=== PATIENT | male | born 2000 | race Caucasian/White ===

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

== ENCOUNTER 2021-05-22 04:22 | Outpatient (CLI) | payer BC, SELFPAY ==
[2021-05-22 13:42] LABS: Hemoglobin A1C 5.1 % (<5.7)
[2021-05-23 11:52] LABS: HIV-1/2 Ag & Ab Screen Negative (Negative)
[2021-05-23 11:58] LABS: Syphilis Serology (RPR) Negative (Negative)
[2021-05-23 15:14] LABS: Chlamydia Result Negative (Negative); GC Result Negative (Negative)
== END 2021-05-22 04:23 | disposition home or self-care (01) ==
PROVIDERS: PCP Nurse Practitioner; Visit Provider Nurse Practitioner
DX: Z13.1 Encounter for screening for diabetes mellitus (principal); Z11.3 Encounter for screening for infections with a predominantly sexual mode of transmission; Z11.4 Encounter for screening for human immunodeficiency virus [HIV]
CPT/HCPCS: 36415; 87389; 87491; 87591; 83036; 86592